=== PATIENT | male | born 1970 | race Caucasian/White ===

== ENCOUNTER 2017-03-19 06:46 | Emergency (ER) | payer OTHER ==
[~2017-03-19] VITALS: Ht 177.8 cm; Wt 108.9 kg
--- NOTE | ~2017-03-19 | EKG ---
[address] [address] ELECTROCARDIOGRAM REPORT Name: CODY ZAVALA Room #: 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
[2017-03-19] MEDS ORDERED: PRILOSEC OTC20 MG PO (07:01)
[2017-03-19] MEDS ORDERED: ASPIRIN325 PO (07:01)
[2017-03-19 07:13] LABS: ABSOLUTE NEUTROPHILS 4.8 thou/uL (1.4-8.2); BASOPHILS 1.1 % (0.0-2.0); EOSINOPHILS 2.5 % (0.0-3.0); HEMOGLOBIN 15.6 gm/dL (14.0-18.0); LYMPHOCYTES 24.2 % (24.0-44.0); MANUAL DIFF NO; MCH 28.8 pg (26.0-34.0); MCHC 34.6 g/dL (28.0-37.0); MCV 83.3 fL (80.0-100.0); MONOCYTES 7.7 % (1.0-8.0); PLATELET COUNT 212 thou/uL (150-400); POLYS 64.5 % (36.0-66.0); RBC 5.41 mil/uL (4.50-6.00); RDW 12.8 % (10.5-14.5); WBC 7.4 thou/uL (4.0-11.0)
[2017-03-19 07:20] LABS: ANION GAP 12 mmol/L (7-16); BUN 12 mg/dL (7-18); CALCIUM 8.9 mg/dL (8.5-10.1); CHLORIDE 99 mmol/L (98-107); CO2 23 mmol/L (21-32); GLUCOSE 133 mg/dL (74-106); POTASSIUM 3.5 mmol/L (3.5-5.1); SODIUM 134 mmol/L (136-145)
[2017-03-19 07:28] LABS: TROPONIN-I < 0.04 ng/mL (<0.04-0.07)
[2017-03-19] MEDS ORDERED: ZANTAC 150MG T150 MG PO (08:08)
[2017-03-19 08:33] VITALS: BP 124/88
== END 2017-03-19 08:34 | disposition home or self-care (01) ==
LOC: ER 06:46
PROVIDERS: Emergency Medicine
DX: R07.89 Other chest pain (principal); E66.9 Obesity, unspecified; F10.99 Alcohol use, unspecified with unspecified alcohol-induced disorder; Z87.891 Personal history of nicotine dependence